=== PATIENT | female | born 1960 | race Caucasian/White ===

== ENCOUNTER 2016-08-16 10:45 | Emergency (ER) | payer BC ==
--- NOTE | ~2016-08-16 | CT16 ---
[facility] A Service of [facility] RADIOLOGY TEXT RESULTS PATIENT: COOPER NUR LOCATION: [facility] : 58 UNIT #: [id number] AGE: [address]: Drew Cassidy DO SEX: F ORDER DR: [id number] [facility] [address] [place], [place] [address] [id number] E MR#: [id number] Acc #: [id number] NAME: COOPER NUR : 1960 SEX: F STUDY DATE/TIME: 08/16/2016 14:20 UNIT: [facility] ROOM: STUDY DESCRIPTION: CT Angio Chest for PE Attending Physician: Drew Cassidy D.O. Ordering Physician: Drew Cassidy D.O. Primary Care Physician: Sarah Licea A.P.R.N. MEDICAL IMAGING REPORT This report is preliminary unless electronic signature is present EXAM CT of the chest with IV contrast media, CT angiography of the pulmonary arteries. INDICATION Difficulty breathing over the last 2 days. TECHNIQUE Axial imaging of the chest was performed with an IV bolus of contrast media. CT angiography was performed 3-D MIP multiplanar reconstructions through the pulmonary arteries. This CT exam was performed with one or more of the following radiation dose reduction techniques: automatic exposure control, adjustment of mA and/or kV according to patient size, and iterative reconstruction. FINDINGS Scans through the lungs show no infiltrates, nodules or masses. There is no evidence of pleural or pericardial fluid. Scans through the mediastinum show no evidence of lymphadenopathy. Pulmonary arteries appear of normal caliber. Scans into the upper abdomen show postop changes of prior cholecystectomy. Liver and spleen appear unremarkable. There is mild fatty replacement of the pancreas. Adrenal glands are not enlarged. The upper poles of the kidneys are normal. CT angiography of the pulmonary arteries shows no evidence of pulmonary artery filling defects. Aorta is of normal caliber. There is atherosclerotic disease present. CONCLUSION 1. Negative chest CT. No evidence of pulmonary embolism. No evidence of pleural or pericardial fluid. No evidence of aneurysm or dissection. 2. Status post cholecystectomy. [facility] A Service of [facility] RADIOLOGY TEXT RESULTS PATIENT: COOPER NUR LOCATION: [facility] : 58 UNIT #: [id number] AGE: [address]: Drew Cassidy DO SEX: F ORDER DR: Dictated by... Jean Pierre Lanza M.D. THIS IS AN ELECTRONICALLY VERIFIED REPORT Jean Pierre Lanza M.D. at 08/19/2016 9:18 AM Case TD: 08/16/2016 17:31 JOB #: [id number] MEDICAL IMAGING REPORT Page 1 of 1 COPY
--- NOTE | ~2016-08-16 | EKG ---
PATIENT: COOPER NUR UNIT #: [id number] Ventricular Rate: 90 BPM Atrial Rate: 90 BPM P-R Interval: 148 ms QRS Duration: 80 ms Q-T Interval: 388 ms QTC Calculation(Bezet): 474 ms P [place]: 46 degrees Calculated R [place]: -4 degrees Calculated T [place]: 13 degrees Diagnosis Line: Normal sinus rhythm Diagnosis Line: Normal ECG Diagnosis Line: No previous ECGs available Diagnosis Line: Confirmed by GARRY DESIR MD ([id number]) on 08/16/2016 Diagnosis Line: 6:56:30 PM INTERPRETING MD: KARLEE CAMPOS
--- NOTE | ~2016-08-16 | CR72 ---
[facility] A Service of [facility] RADIOLOGY TEXT RESULTS PATIENT: COOPER NUR LOCATION: [facility] : 58 UNIT #: [id number] AGE: [address]: Drew Cassidy DO SEX: F ORDER DR: [id number] [facility] [address] [place], [place] [address] [id number] E MR#: [id number] Acc #: [id number] NAME: COOPER NUR : 1960 SEX: F STUDY DATE/TIME: 08/16/2016 11:16 UNIT: [facility] ROOM: STUDY DESCRIPTION: CR Chest Single View Portable Attending Physician: Drew Cassidy D.O. Ordering Physician: Drew Cassidy D.O. Primary Care Physician: Sarah Licea A.P.R.N. MEDICAL IMAGING REPORT This report is preliminary unless electronic signature is present EXAM Chest portable 08/16/2016 1116 hours HISTORY Shortness of air for 2 days. COMPARISON 05/15/2010. FINDINGS Portable upright chest demonstrates low lung volumes. Cardiac, mediastinal and hilar contours are felt unchanged when allowing for the lower level of inspiration. There is mild basilar vascular crowding but no definite acute pulmonary density or pleural effusion. IMPRESSION Low lung volume film with mild basilar vascular crowding. No definite pneumonia, edema or effusion. Dictated by... Mariana Good M.D. THIS IS AN ELECTRONICALLY VERIFIED REPORT Mariana Good M.D. at 08/16/2016 2:31 PM MARA/kim TD: 08/16/2016 13:14 JOB #: [id number] MEDICAL IMAGING REPORT Page 1 of 1 COPY
[~2016-08-16 10:45] MED LIST: HYCODAN60 ML 5MG/ PO; IBUPROFEN800 MG PO; LISINOPRIL10 MG PO; PRILOSEC20 MG PO; SYNTHROID PO; ZITHROMAX PO
[2016-08-16 11:50] LABS: BASOPHIL# 0.1 X10e3 (0-0.3); BASOPHIL% 1.4 % (0-2.5); EOSINOPHIL# 0.4 X10e3 (0-0.7); EOSINOPHIL% 3.8 % (0.0-7.0); HEMATOCRIT 36.3 % (35.0-45.0); HEMOGLOBIN 12.2 gm/dL (12.0-16.0); LYMPHOCYTE# 4.6 X10e3 (1.0-3.5); MEAN CELL VOLUME 95.4 FL (83-96); MEAN CORPUSCULAR HEMOGLOBIN 32.1 PG (28-34); MEAN CORPUSCULAR HGB CONC 33.6 g/dL (30-36); MEAN PLATELET VOLUME 8.8 FL (6.5-11.5); MONOCYTE# 0.5 X10e3 (0-1.0); NEUTROPHIL% 46.8 % (40-75); PLATELET COUNT 258 X10e3 (140-420); RED BLOOD COUNT 3.81 X10e (3.90-5.30); WHITE BLOOD COUNT 10.8 X10e3 (4.0-10.5)
[2016-08-16 12:00] LABS: POC - CKMB <1.0 ng/mL (0.0-7.9); POC - TROPONIN <0.05 ng/mL (<=0.05)
[2016-08-16 12:03] LABS: DIFF IND NO
[2016-08-16 12:16] LABS: PARTIAL THROMBOPLASTIN TIME 25.7 SECONDS (23.5-31.3); PROTHROMBIN TIME (PATIENT) 10.7 SECONDS (9.6-11.5)
[2016-08-16 12:19] LABS: ALBUMIN SERUM 4.1 g/dL (3.5-5.0); BILIRUBIN, DIRECT 0.1 mg/dL (0.0-0.2); BILIRUBIN,INDIRECT 0.6 mg/dL (0.0-0.9); BILIRUBIN,TOTAL 0.7 mg/dL (0.2-2.0); BUN/CREATININE RATIO 11.25; CALCIUM SERUM 8.9 mg/dL (8.4-10.2); CREATININE SERUM 0.8 mg/dL (0.6-1.4); GLOM FILT RATE Estimated 82.5 mL/min (>60); POTASSIUM 3.9 mmol/L (3.5-5.1); PROTEIN TOTAL SERUM 8.1 g/dL (6.0-8.3)
[2016-08-16 13:39] LABS: POC - CKMB 1.2 ng/mL (0.0-7.9); POC - TROPONIN <0.05 ng/mL (<=0.05)
== END 2016-08-16 16:10 | disposition home or self-care (01) ==
LOC: CED 10:45
PROVIDERS: Emergency Medicine
DX: J44.1 Chronic obstructive pulmonary disease with (acute) exacerbation (principal); I10 Essential (primary) hypertension; E03.9 Hypothyroidism, unspecified; F17.200 Nicotine dependence, unspecified, uncomplicated; Z90.49 Acquired absence of other specified parts of digestive tract; Z90.710 Acquired absence of both cervix and uterus; Z88.2 Allergy status to sulfonamides
CPT/HCPCS: 36415; 71010; 71275; 80048; 80076; 82553; 83880; 84484; 85025; 85379; 85610; 85730; 93005; 94640; 96374; 99284; J2920; Q9967